=== PATIENT | female | born 1940 | race Caucasian/White ===

== ENCOUNTER 2018-01-07 11:15 | Emergency (ER) | payer MEDICARE, OTHER ==
[~2018-01-07] VITALS: Ht 170.2 cm; Wt 113.4 kg
[~2018-01-07 11:15] MED LIST: ARICEPT5 MG PO; ASPIRIN81 MG PO; ATORVASTATIN CA20 MG PO; ECPIRIN325 MG PO; HYDROCHLOROTHIA25 MG PO; HYZAAR 50-12.51 EACH; LEVOTHROID125 MCG PO; NEXIUM40 MG PO; PANTOPRAZOLE SO40 MG PO; PINDOLOL5 MG PO; PLAVIX75 MG PO; SERTRALINE HCL100 MG PO; VITAMIN B-121000 MCG PO; VITAMIN D1000 UNI1 PO
[2018-01-07 12:19] LABS: BILIRUBIN,URINE 2+ (NEGATIVE); KETONES,URINE NEGATIVE (NEGATIVE); LEUKOCYTE ESTERASE ,URINE TRACE (NEGATIVE); NITRITE,URINE NEGATIVE (NEGATIVE); URINE UROBILINOGEN 12 mg/dL (0.2 - 1)
[2018-01-07 12:22] LABS: CLARITY,URINE HAZY (CLEAR); COLOR,URINE AMBER (YELLOW); PROTEIN,URINE DIPSTICK 1+ (NEGATIVE)
[2018-01-07 12:25] LABS: BASOPHILS % 0.8 % (0.0-1.0); EOSINOPHILS # (AUTO) 0.1 (0.0-0.4); EOSINOPHILS % 2.5 % (0.0-6.0); HEMATOCRIT 35.7 % (34.2-44.1); HEMOGLOBIN 11.7 g/dL (12.0-16.0); LYMPHOCYTES # (AUTO) 0.7 (1.0-3.2); LYMPHOCYTES % 20.7 % (18.0-39.1); MEAN CORPUSCULAR HEMOGLOBIN 33.3 pg (28-32); MEAN CORPUSCULAR HGB CONC 32.8 g/dL (31-35); MEAN CORPUSCULAR VOLUME 101.7 fL (81-99); MONOCYTES # (AUTO) 0.7 (0.2-0.8); MONOCYTES % 18.5 % (4.4-11.3); NEUTROPHILS % 57.2 % (38.7-80.0); PLATELET COUNT 170 x10e3/uL (140-360); RED BLOOD COUNT 3.51 x10e6/uL (3.6-5.1); RED CELL DISTRIBUTION WIDTH 13.8 % (11.7-14.4)
[2018-01-07 12:40] LABS: ALANINE AMINOTRANSFERASE 11 IU/L (0-55); ALBUMIN 3.8 g/dL (3.5-5.0); ALBUMIN/GLOBULIN RATIO 1.1 (0.8-2.0); ALKALINE PHOSPHATASE 103 IU/L (40-150); ANION GAP 13.8 mmol/L (8-16); BLOOD UREA NITROGEN 10 mg/dL (7-26); BUN/CREATININE RATIO 12 (6-25); CALCIUM 9.1 mg/dL (8.4-10.2); CARBON DIOXIDE 24 mmol/L (22-29); CHLORIDE 107 mmol/L (98-107); CREATINE KINASE 29 IU/L (29-168); CREATININE, SERUM 0.85 mg/dL (0.57-1.11); EST GLOMERULAR FILTRATION RATE > 60 ML/MIN (60-); GLUCOSE 97 mg/dL (74-118); POTASSIUM 3.8 mmol/L (3.5-5.1); SODIUM 141 mmol/L (136-145)
[2018-01-07 12:46] LABS: BACTERIA,URINE FEW /HPF; EPITHELIAL CELLS,URINE MODERATE /LPF; MUCUS,URINE MANY (RARE)
--- NOTE | 2018-01-07 12:46 | Diagnostic Imaging Report ---
EXAMINATION: CHEST 2 VIEWS 01/07/2018 11:29 AM COMPARISON: 10/29/2012 INDICATION: Bodyaches, fever, congestion, shortness of breath DISCUSSION: LINES: None. LUNGS: Linear opacities in the left midlung likely represent atelectasis or scarring. Stable calcified granuloma in the right middle lobe. Basilar bronchial wall thickening. PLEURA: No pleural effusion or pneumothorax. HEART AND MEDIASTINUM: Normal heart size. Atherosclerosis of the thoracic aorta. BONES AND SOFT TISSUES: No acute osseous lesion. The soft tissues are normal. IMPRESSION: Bronchial wall thickening suggests bronchitis or asthma. Ronak Velásquez MD Signed by: Dr. Ronak Velásquez M.D. on 01/07/2018 12:43 PM
[2018-01-07 12:50] LABS: INR 1.79; PROTHROMBIN TIME 19.5 seconds (11.9-14.5)
[2018-01-07 12:51] LABS: PARTIAL THROMBOPLASTIN TIME 40.2 seconds (23.8-35.5)
== END 2018-01-07 16:07 | disposition home or self-care (01) ==
LOC: ER 11:15
DX: R50.9 Fever, unspecified (principal); R05 Cough; J00 Acute nasopharyngitis [common cold]; J02.9 Acute pharyngitis, unspecified; N39.0 Urinary tract infection, site not specified
CPT/HCPCS: 36415; 71046; 80053; 81001; 82550; 82553; 83880; 84484; 85025; 85610; 85730; 87086; 87400; 93005; 99284

== ENCOUNTER → 2018-02-05 | Day surgery (SDC) | payer MEDICARE, OTHER ==
[2018-01-30 14:01] LABS: BASOPHILS % 0.9 % (0.0-1.0); EOSINOPHILS % 0.9 % (0.0-6.0); HEMATOCRIT 33.5 % (34.2-44.1); HEMOGLOBIN 10.6 g/dL (12.0-16.0); LYMPHOCYTES # (AUTO) 0.7 (1.0-3.2); LYMPHOCYTES % 19.8 % (18.0-39.1); MEAN CORPUSCULAR HEMOGLOBIN 32.5 pg (28-32); MEAN CORPUSCULAR HGB CONC 31.6 g/dL (31-35); MEAN CORPUSCULAR VOLUME 102.8 fL (81-99); MONOCYTES # (AUTO) 0.3 (0.2-0.8); MONOCYTES % 9.7 % (4.4-11.3); NEUTROPHILS # (AUTO) 2.3 (2.1-6.9); NEUTROPHILS % 68.4 % (38.7-80.0); PLATELET COUNT 206 x10e3/uL (140-360); RED BLOOD COUNT 3.26 x10e6/uL (3.6-5.1); RED CELL DISTRIBUTION WIDTH 13.1 % (11.7-14.4)
[~2018-02-05] MED LIST changes: +ELIQUIS PO; +FENTANYL CITRATE/PF 100MCG/2 ML INJ ONE; +HYOSCYAMINE SULFATE 0.5 MG/ML AMP ONE; +MIDAZOLAM HCL 2 MG/2 ML VIAL ONE; +NAMENDA10 MG PO; +PROPOFOL IV EMULSION 10 MG/ML 50 ML VIAL ONE; +TRAZODONE HCL50 MG PO
--- OUTSIDE RECORDS SUMMARY | 2018-02-05 08:49 | XMS REPORT | Continuity of Care Document ---
Author Author [facility] Organization [facility] Address [address] [address] Phone Unavailable Care Team Providers Care Class A Regional Truck Driver Name Role Phone SIRENA CONNORS MD PCP Insurance Providers Guarantor MaciMickey Address [address] [place] [address] Email PTDECLINED Payer Medicare A & B Policy Number [id number] Subscriber's Name Mickey Lux Relationship 18 Self / Same As Patient Group Name RETIRED Effective Date 06 Payer Miscellaneous Indemnity Policy Number [id number] Subscriber's Name Mickey Lux Relationship 18 Self / Same As Patient Group Number PLAN F Group Name RETIRED Effective Date 06 Advance Directives Directive Response Recorded Date/Time Does the patient have an advance directive? No 03/04/11 3:15pm If yes, is advance directive on file with [facility]? No 03/04/11 3:15pm If not on file with [facility] will patient provide a copy? No 03/04/11 3:15pm Do you have a Directive to Physician? No 01/07/18 3:08pm Do you have a Medical Power of Transportation Services Representative? No 01/07/18 3:08pm Do you have an out of hospital Do Not Resuscitate Order? No 01/07/18 3:08pm Do you have any special needs we should be aware of? No 01/07/18 3:08pm Do you have a support person here with you today? Yes 01/07/18 3:08pm Did patient receive Notice of Privacy Practices? Yes 01/07/18 3:08pm Did patient receive patient rights and responsibilities? Yes 01/07/18 3:08pm Problems No problem information available. Medications Current Home Medications Medication Dose Units Route Directions Days Qty Instructions Start Date Aspirin 81 Mg Tab.chew 81 Mg Oral Daily Atorvastatin Calcium 20 Mg Tablet 20 Mg Oral Today At 9:00PM Cholecalciferol (Vitamin D3) (Vitamin D) 1,000 Unit Tablet 5,000 Unit Oral Daily 30 Tab Clopidogrel Bisulfate (Plavix) 75 Mg Tablet 75 Mg Oral Daily Cyanocobalamin (Vitamin B-12) 1,000 Mcg Tab 3,000 Mcg Oral Daily 30 Tab Donepezil Hcl (Aricept) 5 Mg Tablet 10 Mg Oral Bedtime 60 Tab Hydrochlorothiazide 25 Mg Tablet 12.5 Mg Oral Daily 30 Tab Levothyroxine Sodium (Levothroid) 125 Mcg Tablet 125 Mcg Oral Daily Pantoprazole Sodium (Protonix) 40 Mg Tablet.dr 40 Mg Oral Daily Pindolol 5 Mg Tablet 5 Mg Oral Daily Sertraline Hcl 100 Mg Tablet 100 Mg Oral Daily Past Home Medications Medication Directions Ordered Status Esomeprazole Magnesium (Nexium) 40 Mg Capsule.dr, 40 Mg Oral Daily Discontinued Losartan/Hydrochlorothiazide (Hyzaar 50-12.5 Tablet) 1 Each Tablet, Discontinued Social History Social History Problem Response Recorded Date/Time Onset Date Status Hx Psychiatric Problems Yes 03/04/2011 3:15pm Not Applicable Not Applicable Hx Depression Yes 03/04/2011 3:15pm Not Applicable Not Applicable Smoking Status Start Date Stop Date Never Smoker Hospital Discharge Instructions No hospital discharge instruction information available. Plan of Care Discharge Date 01/07/18 4:07pm Disposition HOME, SELF-CARE Condition at Discharge Stable Instructions/Education Provided Bronchitis (Acute) - Adult Urinary Tract Infection - Women Prescriptions See Medication Section Referrals SIRENA CONNORS MD Order Date: Call for an appointment Address: [address] [place] [id number] Additional Instructions/Education DC Instructions: Call for follow up appointment to see your medical provider or the referral listed. Take the medication as prescribed. As discussed at the bedside, drink fluids, rest and return to the ER for any fever, shortness of breath, chest pain, trouble handling your oral secreations or any new concerns. Functional Status No functional status information available. Allergies, Adverse Reactions, Alerts Allergen Type Severity Reaction Status Last Updated Penicillin Allergy Mild RASH Active 01/07/18 Immunizations No immunization information available. Vital Signs Acute Vital Signs Vital Response Date/Time Height 5 ft 7 in 01/07/2018 11:18am Weight 250 lb 01/07/2018 11:18am Body Mass Index 39.2 kg/m^2 01/07/2018 11:18am Results Laboratory Results Test Name Result Units Flags Reference Collection Date/Time Result Date/ Time Comments White Blood Count 3.57 x10e3/uL L 4.8-10.8 01/07/2018 11:55am 2017 12:29pm Red Blood Count 3.51 x10e6/uL L 3.6-5.1 01/07/2018 11:55am 01/07/2018 12 :29pm Hemoglobin 11.7 g/dL L 12.0-16.0 01/07/2018 11:55am 01/07/2018 12:29pm Hematocrit 35.7 % 34.2-44.1 01/07/2018 11:55am 01/07/2018 12:29pm Mean Corpuscular Volume 101.7 fL H 81-99 01/07/2018 11:55am 01/07/2018 12:29pm Mean Corpuscular Hemoglobin 33.3 pg H 28-32 01/07/2018 11:55am 2017 12:29pm Mean Corpuscular Hemoglobin Concent 32.8 g/dL 31-35 01/07/2018 11:55am 01/07/2018 12:29pm Red Cell Distribution Width 13.8 % 11.7-14.4 01/07/2018 11:55am 2017 12:29pm Platelet Count 170 x10e3/uL 140-360 01/07/2018 11:55am 01/07/2018 12: 29pm Neutrophils (%) (Auto) 57.2 % 38.7-80.0 01/07/2018 11:55am 01/07/2018 12:29pm Lymphocytes (%) (Auto) 20.7 % 18.0-39.1 01/07/2018 11:55am 01/07/2018 12:29pm Monocytes (%) (Auto) 18.5 % H 4.4-11.3 01/07/2018 11:55am 01/07/2018 12 :29pm Eosinophils (%) (Auto) 2.5 % 0.0-6.0 01/07/2018 11:55am 01/07/2018 12: 29pm Basophils (%) (Auto) 0.8 % 0.0-1.0 01/07/2018 11:55am 01/07/2018 12: 29pm IM GRANULOCYTES % 0.3 % 0.0-1.0 01/07/2018 11:55am 01/07/2018 12:29pm Neutrophils # (Auto) 2.0 L 2.1-6.9 01/07/2018 11:55am 01/07/2018 12: 29pm Lymphocytes # (Auto) 0.7 L 1.0-3.2 01/07/2018 11:55am 01/07/2018 12: 29pm Monocytes # (Auto) 0.7 0.2-0.8 01/07/2018 11:55am 01/07/2018 12:29pm Eosinophils # (Auto) 0.1 0.0-0.4 01/07/2018 11:55am 01/07/2018 12: 29pm Basophils # (Auto) 0.0 0.0-0.1 01/07/2018 11:55am 01/07/2018 12:29pm Absolute Immature Granulocyte (auto 0.01 x10e3/uL 0-0.1 01/07/2018 11: 55am 01/07/2018 12:29pm Prothrombin Time 19.5 seconds H 11.9-14.5 01/07/2018 11:55am 01/07/2018 1:20pm Prothromb Time International Ratio 1.79 01/07/2018 11:55am 2017 1:20pm Oral Anticoagulant Therapy INR Values: 1. Low Intensity Therapy 1.5 - 2.0 2. Moderate Intensity Therapy 2.0 - 3.0 3. High Intensity Therapy(1) 2.5 - 3.5 4. High Intensity Therapy(2) 3.0 - 4.0 5. Panic Value INR > 5.0 Activated Partial Thromboplast Time 40.2 seconds H 23.8-35.5 01/07/2018 11:55am 01/07/2018 1:20pm Urine Color ALBERTO H YELLOW 01/07/2018 11:32am 01/07/2018 12:22pm Urine Clarity HAZY CLEAR 01/07/2018 11:32am 01/07/2018 12:22pm Urine Specific [place] 1.015 1.010-1.025 01/07/2018 11:32am 2017 12:22pm Urine pH 6 5 - 7 01/07/2018 11:32am 01/07/2018 12:22pm Urine Leukocyte Esterase TRACE H NEGATIVE 01/07/2018 11:32am 2017 12:22pm Urine Nitrite NEGATIVE NEGATIVE 01/07/2018 11:32am 01/07/2018 12: 22pm Urine Protein 1+ H NEGATIVE 01/07/2018 11:32am 01/07/2018 12:22pm Urine Glucose (UA) NEGATIVE NEGATIVE 01/07/2018 11:32am 01/07/2018 12 :22pm Urine Ketones NEGATIVE NEGATIVE 01/07/2018 11:32am 01/07/2018 12: 22pm Urine Urobilinogen 12 mg/dL H 0.2 - 1 01/07/2018 11:32am 01/07/2018 12: 22pm Urine Bilirubin 2+ H NEGATIVE 01/07/2018 11:32am 01/07/2018 12:22pm Urine Blood 1+ H NEGATIVE 01/07/2018 11:32am 01/07/2018 12:22pm Urine WBC 6-10 /HPF H 0-5 01/07/2018 11:32am 01/07/2018 12:47pm Urine RBC 11-20 /HPF H 0-5 01/07/2018 11:32am 01/07/2018 12:47pm Urine Bacteria FEW /HPF NONE 01/07/2018 11:32am 01/07/2018 12:47pm Urine Epithelial Cells MODERATE /LPF NONE 01/07/2018 11:32am 2017 12:47pm Urine Mucus MANY H RARE 01/07/2018 11:32am 01/07/2018 12:47pm Sodium Level 141 mmol/L 136-145 01/07/2018 11:5501/07/2018 1:20pm Potassium Level 3.8 mmol/L 3.5-5.1 01/07/2018 11:5501/07/2018 1: 20pm Chloride Level 107 mmol/L 98-107 01/07/2018 11:5501/07/2018 1:20pm Influenza Virus Types A,B Antigen NEGATIVE NEGATIVE 01/07/2018 11: 3001/07/2018 12:22pm Carbon Dioxide Level 24 mmol/L -01/07/2018 11:5501/07/2018 1: 20pm Anion Gap 13.8 mmol/L 8-16 01/07/2018 11:5501/07/2018 1:20pm Blood Urea Nitrogen 10 mg/dL 06-0701/07/2018 11:5501/07/2018 1:20pm Creatinine 0.85 mg/dL 0.57-1.11 01/07/2018 11:5501/07/2018 1:20pm BUN/Creatinine Ratio 12 05-0701/07/2018 11:5501/07/2018 1:20pm Estimat Glomerular Filtration Rate > 60 ML/MIN 60- 01/07/2018 11:5501/07/2018 1:20pm Ranges were taken from the National Kidney Disease Education Program and the National Kidney Foundation literature. Reference ranges: 60 or greater: Normal 16-59 (for 3 consecutive months): Chronic kidney disease 15 or less: Kidney failure Glucose Level 97 mg/dL 74-118 01/07/2018 11:5501/07/2018 1:20pm Calcium Level 9.1 mg/dL 8.4-10.2 01/07/2018 11:5501/07/2018 1:20pm Total Bilirubin 1.3 mg/dL H 0.2-1.2 01/07/2018 11:5501/07/2018 1: 20pm Aspartate Amino Transf (AST/SGOT) 18 IU/L 5-34 01/07/2018 11:5501/07 1:20pm Alanine Aminotransferase (ALT/SGPT) 11 IU/L 0-55 01/07/2018 11:55 1:20pm Total Protein 7.2 g/dL 6.5-8.1 01/07/2018 11:55am 01/07/2018 1:20pm Albumin 3.8 g/dL 3.5-5.0 01/07/2018 11:55am 01/07/2018 1:20pm Globulin 3.4 g/dL 2.3-3.5 01/07/2018 11:55am 01/07/2018 1:20pm Albumin/Globulin Ratio 1.1 0.8-2.0 01/07/2018 11:55am 01/07/2018 1: 20pm Alkaline Phosphatase 103 IU/L 40-150 01/07/2018 11:55am 01/07/2018 1: 20pm B-Type Natriuretic Peptide 330.3 pg/mL H 0-100 01/07/2018 11:55am 2017 1:21pm Creatine Kinase 29 IU/L 29-168 01/07/2018 11:55am 01/07/2018 1:20pm Creatine Kinase MB 0.50 ng/mL 0-5.0 01/07/2018 11:55am 01/07/2018 1: 20pm Troponin I 0.004 ng/mL 0-0.300 01/07/2018 11:55am 01/07/2018 1:20pm Procedures Procedure Status Date Provider(s) X-ray of chest, two views Active 01/07/18 CLARIBEL BANKS DYNAMICIST Encounters Encounter Location Arrival/Admit Date Discharge/Depart Date Attending Provider Departed Emergency Room [facility] 01/07/18 11:15am 01/07 4:07pm SOUTH FRAZIER MD
--- OUTSIDE RECORDS SUMMARY | 2018-02-05 08:49 | XMS REPORT | Clinical Summary ---
Author Author [facility] Address Unknown Phone Unavailable Care Team Providers Care Gunnery/Ordnance Officer Name Role Phone Rajni Garcia MD PCP Allergies Active Allergy Reactions Severity Noted Date Comments Penicillins Rash Low 07/25/2016 Current Medications Prescription Sig. Disp. Refills Start End Date Status Date atorvastatin (LIPITOR) 40 20 mg. Active MG tablet pindolol (VISKEN) 5 MG pindolol 5 mg tablet Active tablet sertraline (ZOLOFT) 100 sertraline 100 mg tablet Active MG tablet levothyroxine (SYNTHROID, levothyroxine 150 mcg Active LEVOTHROID) 150 MCG tablet tablet donepezil (ARICEPT) 10 MG donepezil 10 mg tablet Active tablet pantoprazole (PROTONIX) Take 40 mg by mouth Active 40 MG EC tablet daily. vitamin D3-folic acid Take by mouth. Active 5,000 unit- 1 mg tablet cyanocobalamin (VITAMIN Take 2,000 mcg by mouth Active B-12) 2000 MCG tablet daily. diazepam (VALIUM) 5 MG Take 5 mg by mouth every Active tablet 6 (six) hours as needed for anxiety. levothyroxine (SYNTHROID, Take 100 mcg by mouth Active LEVOXYL) 100 mcg tablet daily. HYDROcodone-acetaminophen Take 1 tablet by mouth Active (NORCO) 10-325 mg per every 6 (six) hours as tablet needed for moderate pain. clopidogrel (PLAVIX) 75 clopidogrel 75 mg tablet 10/23/20 Discontin mg tablet 17 ued losartan-hydrochlorothiaz losartan 50 10/23/20 Discontin javid (HYZAAR) 50-12.5 mg mg-hydrochlorothiazide 17 ued per tablet 12.5 mg tablet aspirin (ECOTRIN) 81 MG Take 81 mg by mouth 10/23/20 Discontin enteric coated tablet daily. 17 ued levothyroxine (SYNTHROID, TK 1 T PO QD 5 10/20/20 10/23/20 Discontin LEVOXYL) 125 mcg tablet 16 17 ued ibandronate (BONIVA) 150 Take 1 tablet (150 mg 1 tablet 11 12/30/19 02/07/20 Discontin mg tablet total) by mouth every 30 17 17 ued (thirty) days. Take in AM with glass of water prior to food, don't lie down for 30 minutes. levothyroxine (SYNTHROID, TK 1 T PO QD 1 01/19/20 10/23/20 Discontin LEVOXYL) 137 mcg tablet 17 17 ued HYDROcodone-acetaminophen Take 1 tablet by mouth 60 tablet 0 03/08/20 04/07/20 (NORCO) 5-325 mg per every 8 (eight) hours as 17 17 tablet needed for moderate pain for up to 60 doses. Max Daily Amount: 3 tablets traMADol (ULTRAM) 50 mg Take 1 tablet (50 mg 90 tablet 0 07/21/20 tablet total) by mouth every 8 17 17 (eight) hours as needed for moderate pain for up to 28 days. Active Problems Problem Noted Date Status post total right knee replacement 11/09/2016 Arthritis of right knee 07/25/2016 Encounters Date Type Specialty Care Team Description 01/05/2018 Hospital Radiology Valentino Pierce MD Left shoulder pain, Encounter unspecified chronicity 01/05/2018 Transcribe Access Valentino Pierce MD Left shoulder pain, Orders unspecified chronicity (Primary Dx) 10/23/2017 Hospital Procedural Cardiology Flo Abad MD Carotid artery disorder Encounter 10/23/2017 Procedure Pass Procedural Cardiology 10/23/2017 Surgery Procedural Cardiology Flo Abad MD Cv left heart cath w lv gram cors [75891 (CPT )] 07/20/2017 Refill Orthopedic Surgery Manuel Wallace MD 07/15/2017 Refill Orthopedic Surgery Manuel Wallace MD 03/08/2017 Orders Only Orthopedic Surgery Manuel Wallace MD 03/07/2017 Refill Orthopedic Surgery Manuel Wallace MD 03/02/2017 Telephone Orthopedic Surgery Manuel Wallace MD 02/15/2017 [facility] Emergency Medicine Physician, Emergency, MD Encounter Regino Peralta DO 02/06/2017 Office Visit Orthopedic Surgery Manuel Wallace MD Status post total right knee replacement (Primary Dx) after 02/04/2017 Family History Medical History Relation Name Comments Heart failure Father Colon cancer Mother Relation Name Status Comments Father Mother Social History Tobacco Use Types Packs/Day Years Used Date Never Smoker Smokeless Tobacco: Never Used Alcohol Use Drinks/Week oz/Week Comments No Sex Assigned at Date Recorded Not on file Last Filed Vital Signs Vital Sign Reading Time Taken Blood Pressure 130/60 10/23/2017 4:02 PM CENTRAL OFFICE REPAIRER Pulse 72 10/23/2017 4:02 PM CENTRAL OFFICE REPAIRER Temperature - - Respiratory Rate 17 10/23/2017 4:02 PM CENTRAL OFFICE REPAIRER Oxygen Saturation 99% 10/23/2017 4:02 PM CENTRAL OFFICE REPAIRER Inhaled Oxygen - - Concentration Weight 88.9 kg (196 lb) 10/23/2017 9:08 AM CENTRAL OFFICE REPAIRER Height 162.6 cm (5' 4") 10/23/2017 9:08 AM CENTRAL OFFICE REPAIRER Body Mass Index 33.64 10/23/2017 9:08 AM CENTRAL OFFICE REPAIRER Plan of Treatment Health Maintenance Due Date Last Done Comments ZOSTER VACCINE 2001 PNEUMOCOCCAL 2006 POLYSACCHARIDE VACCINE AGE 65 AND OVER PNEUMOCOCCAL-13 2006 INFLUENZA VACCINE 06/13/2017 Implants Implanted Type Area Motion Picture Critic Device Expiration Model / Identifier Date Serial / Lot Device Vasclr Clsr Baln Cath 10ml Cardiovasc N/A: N/A ACCESS CLOSURE 09/12/2019 [id number] / Lkng Syr 5fr [employer] / [id number] Implants [id number] Implanted: 10/23/2017 (Quantity not on file) Procedures Procedure Name Priority Date/Time Associated Diagnosis Comments CV LEFT HEART CATH LV Routine 10/23/2017 Carotid artery disorder GRAM WITH CORS 12:09 PM CENTRAL OFFICE REPAIRER after 02/04/2017 Results * XR Shoulder 2+ Vw Left (01/05/2018 12:54 PM) Specimen Performing Laboratory [facility] [address] [place] [address] Narrative Clinical history: COMPARISON: None. TECHNIQUE: 3 views of the shoulder IMPRESSION: The glenohumeral joint: There is advanced degenerative narrowing of the glenohumeral joint with mild inferior subluxation of the humerus. A 12mm osteophyte is present on the inferior rim of the glenoid fossa. Acromioclavicular arthropathy: There is a 12 mm focal area of soft tissue calcification on the superior aspect of the acromioclavicular joint. There is cortical overgrowth with a large flat surface osteophyte on the inferior surface of the acromion with [id number] apposition of the acromial osteophyte and the humeral articular surface. A calcified loose body is suspected along the inferior margin of the acromioclavicular joint. The appearance is similar to prior left shoulder x-ray from 01/21/2017. No signs of acute trauma. [id number] Procedure Note Interface, Radiology Results Incoming - 01/05/2018 2:24 PM CENTRAL OFFICE REPAIRER Clinical history: COMPARISON: None. TECHNIQUE: 3 views of the shoulder IMPRESSION: The glenohumeral joint: There is advanced degenerative narrowing of the glenohumeral joint with mild inferior subluxation of the humerus. A 12mm osteophyte is present on the inferior rim of the glenoid fossa. Acromioclavicular arthropathy: There is a 12 mm focal area of soft tissue calcification on the superior aspect of the acromioclavicular joint. There is cortical overgrowth with a large flat surface osteophyte on the inferior surface of the acromion with [id number] apposition of the acromial osteophyte and the humeral articular surface. A calcified loose body is suspected along the inferior margin of the acromioclavicular joint. The appearance is similar to prior left shoulder x-ray from 01/21/2017. No signs of acute trauma. [id number] * Cv fence laborer procedure (10/23/2017 12:09 PM) Specimen Performing Laboratory [facility] [address] [place] [address] * POC panel (10/23/2017 9:23 AM) Component Value Ref Range POC sodium 144 135 - 150 mmol/L POC potassium 3.7 3.5 - 5.0 mmol/L POC chloride 102 100 - 109 mmol/L POC CO2 28 24 - 32 mmol/L POC glucose 87 65 - 100 mg/dL POC BUN 11 7 - 18 mg/dL POC creatinine 0.7 (L) 0.8 - 1.5 mg/dl POC hemoglobin 11.2 (L) 11.5 - 15.3 g/dL POC hematocrit 33 (L) 34 - 45 % Specimen Performing Laboratory Blood [facility] [address] [place] [address] * XR Forearm 2 Vw Right (02/15/2017 7:05 PM) Specimen Performing Laboratory [facility] [address] [place] [address] Narrative FOREARM RIGHT CLINICAL INDICATION:PAIN COMPARISON:None. IMPRESSION: There is no acute fracture or dislocation. There is no elbow joint effusion. There are mild degenerative changes at the ulnotrochlear articulation. There is enthesopathy at the lateral humeral epicondyle. The bones are demineralized. [id number] Procedure Note Interface, Radiology Conversion - 02/15/2017 7:28 PM CDT FOREARM RIGHT CLINICAL INDICATION: PAIN COMPARISON: None. IMPRESSION: There is no acute fracture or dislocation. There is no elbow joint effusion. There are mild degenerative changes at the ulnotrochlear articulation. There is enthesopathy at the lateral humeral epicondyle. The bones are demineralized. [id number] * XR Hand 3+ Vw Right (02/15/2017 7:03 PM) Specimen Performing Laboratory [facility] [address] [place] [address] Narrative HAND 3 VIEWS RIGHT CLINICAL INDICATION:PAIN COMPARISON:None. IMPRESSION: There is no acute fracture or dislocation. There is no focal soft tissue swelling. 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 The bones are demineralized. There is chondrocalcinosis within the triangular fibrocartilage complex. [id number] Procedure Note Interface, Radiology Conversion - 02/15/2017 7:26 PM CDT HAND 3 VIEWS RIGHT CLINICAL INDICATION: PAIN COMPARISON: None. IMPRESSION: There is no acute fracture or dislocation. There is no focal soft tissue swelling. 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 The bones are demineralized. There is chondrocalcinosis within the triangular fibrocartilage complex. [facility]-[id number] after 02/04/2017 Insurance Payer Benefit Subscriber ID Type Phone Address Plan / Group MEDICARE MEDICARE xxxxxxxxxxx Medicare [place], [place] PART A AND B [employer] OF [employer] MUT[employer] OF xxxxxxxx Commercial [employer] Home:
--- OUTSIDE RECORDS SUMMARY | 2018-02-05 08:49 | XMS REPORT ---
Author Author [facility] Address Unknown Phone Unavailable Care Team Providers Care Levers Lace Machine Operator Name Role Phone SOUTH FRAZIER Unavailable Unavailable Problems This patient has no known problems. Allergies, Adverse Reactions, Alerts This patient has no known allergies or adverse reactions. Medications This patient has no known medications. Results Test Description Test Time Test Comments Text Results Atomic Results Result Comments CHEST 2 VIEWS [place] [address] Patient Name: MICKEY RODRIGUEZ MR #: [id number] : 1940 Age/Sex: 77/F Req #: [id number] Adm Physician: Ordered by: CLARIBEL BANKS COATING MACHINE OPERATOR HELPER Report #: [id number] Location: ER Room/Bed: Procedure: [id number] DX/CHEST 2 VIEWS Exam Date: 01/07/18 Exam Time: 1213 REPORT STATUS: Signed EXAMINATION: CHEST 2 VIEWS 01/07/2018 11: 29 AM COMPARISON: 10/29/2012 INDICATION: Bodyaches, fever, congestion , shortness of breath DISCUSSION: LINES: None. LUNGS: Linear opacities in the left midlung likely represent atelectasis or scarring. Stable calcified granuloma in the right middle lobe. Basilar bronchial wall thickening. PLEURA: No pleural effusion or pneumothorax. HEART AND MEDIASTINUM: Normal heart size. Atherosclerosis of the thoracic aorta. BONES AND SOFT TISSUES: No acute osseous lesion. The soft tissues are normal. IMPRESSION: Bronchial wall thickening suggests bronchitis or asthma. Edson Velásquez MD Signed by: Dr. Edson Velásquez M.D. on 12:43 PM Dictated By: EDSON VELÁSQUEZ MD 1243 Transcribed By: NIKKI on 01/07/18 1243 COPY TO: CLARIBEL BANKS NP
--- NOTE | 2018-02-05 13:10 | Operative Report ---
DATE OF PROCEDURE: February 05, 2018 REFERRING PHYSICIAN: Dr. Ani Connors PROCEDURES PERFORMED 1. Esophagogastroduodenoscopy with esophageal dilatation and biopsies. 2. Colonoscopy with biopsies. INDICATIONS FOR EGD: Dysphagia, history of dark stools. INDICATIONS FOR COLONOSCOPY: Colorectal cancer screening, personal history of colon polyps, chronic diarrhea. MEDICATION: Patient was done under MAC. Please see anesthesiologist's note. PROCEDURE: With the patient in the left lateral decubitus position, the flexible fiberoptic Olympus gastroscope was introduced into the esophagus under direct visualization without any difficulty. There was some patchy erythema noted in the distal esophagus. There was a mild stricture noted at the GE junction, and that was dilated to size 52-Armenian Jo. There was a focal nodularity noted at the GE junction, and that was biopsied. The scope was then advanced with ease into the stomach, traversing a small sliding hiatal hernia. Mucosa overlying the antrum and the body revealed some patchy erythema and mild to moderate edema, and biopsies were obtained and sent to stain for H. pylori. There was some patchy atrophy noted in the body, and biopsies were obtained and sent to rule out atrophic gastritis. Two minute nodules were noted in the mid body greater curvature, and those were biopsied. The pylorus appeared to be of normal contour and shape. It was intubated with ease, and the scope was advanced all the way to the 2nd portion of the duodenum. Mucosa overlying the proximal 2nd portion and the duodenal bulb appeared to be within normal limits. The scope was then withdrawn back into the stomach and retroflexed. Mucosa overlying the fundus and the cardia appeared to be within normal limits. The scope was then straightened out. The stomach was decompressed. The scope was subsequently withdrawn. Patient tolerated the procedure well. IMPRESSION 1. Distal esophagitis. 2. Focal nodularity at gastroesophageal junction, biopsied. 3. Esophageal stricture at gastroesophageal junction dilated to a size 52-Armenian Jo. 4. Small sliding hiatal hernia. 5. Gastritis, biopsied. Biopsies sent to stain for H. pylori. 6. Minute nodules, body, biopsied. PLAN: Follow up histology. Increase Protonix to 40 mg 1 p.o. a.c. b.i.d. The patient was then turned around. After adequate lubrication of the anal canal, a flexible fiberoptic Olympus colonoscope was inserted into the rectum with ease and advanced all the way to the cecum. The ileocecal valve was intubated. Scope was advanced to just beyond the ileocecal valve. It could not be advanced any further due to the excessive looping of the scope proximally. Biopsies were obtained. The scope was then withdrawn back into the colon. It was then withdrawn slowly. Mucosa overlying the ascending and transverse grossly appeared to be within normal limits. Mucosa overlying the left colon revealed some patchy, mild, inflammatory changes, and random biopsies were obtained. The scope was then retroflexed into the distal rectum, and the area around the dentate line appeared to be within normal limits. The scope was then straightened out. It was subsequently withdrawn after securing an adequate stool specimen that was sent for the appropriate stool studies. Patient tolerated the procedure well. IMPRESSION: Mild, patchy, left-sided colitis. Random biopsies obtained. PLAN: Follow up histology. Follow up stool studies. Initiate Bentyl 10 mg 1 p.o. t.i.d. Add VSL #3 DS 1 p.o. b.i.d. Job#: [id number] cc:ANI CONNORS MD
[2018-02-05 13:56] LABS: WBC,FECAL (FECAL LACTOFERRIN) NEGATIVE (NEGATIVE)
[2018-02-06 12:59] LABS: C DIFFICILE TOXIN A&B AMP PROB NEGATIVE (NEGATIVE)
== END | disposition home or self-care (01) ==
LOC: ENDO 08:47
PROVIDERS: ATTEND Internal Medicine Gastroenterology
DX: K29.40 Chronic atrophic gastritis without bleeding (principal); Z86.010 Personal history of colon polyps; K22.2 Esophageal obstruction; K51.50 Left sided colitis without complications; K31.89 Other diseases of stomach and duodenum; K21.0 Gastro-esophageal reflux disease with esophagitis; K22.9 Disease of esophagus, unspecified; K44.9 Diaphragmatic hernia without obstruction or gangrene; K57.30 Diverticulosis of large intestine without perforation or abscess without bleeding; K64.8 Other hemorrhoids; I25.10 Atherosclerotic heart disease of native coronary artery without angina pectoris; I48.91 Unspecified atrial fibrillation; I10 Essential (primary) hypertension; F32.9 Major depressive disorder, single episode, unspecified; F03.90 Unspecified dementia, unspecified severity, without behavioral disturbance, psychotic disturbance, mood disturbance, and anxiety; Z01.810 Encounter for preprocedural cardiovascular examination; Z01.812 Encounter for preprocedural laboratory examination; Z79.02 Long term (current) use of antithrombotics/antiplatelets; Z79.82 Long term (current) use of aspirin; Z68.30 Body mass index [BMI] 30.0-30.9, adult; Z86.73 Personal history of transient ischemic attack (TIA), and cerebral infarction without residual deficits; Z80.0 Family history of malignant neoplasm of digestive organs
CPT/HCPCS: 36415; 43239; 43450; 45380; 83630; 83993; 85025; 87045; 87177; 87328; 87493; 88305; 88312; 93005; J1980; J2250; 45378

== ENCOUNTER 2019-12-23 15:08 | Emergency (ER) | payer MEDICARE, OTHER ==
[~2019-12-23] VITALS: Ht 162.6 cm; Wt 98.9 kg
[~2019-12-23 15:08] MED LIST changes: -FENTANYL CITRATE/PF 100MCG/2 ML INJ ONE; -HYOSCYAMINE SULFATE 0.5 MG/ML AMP ONE; -MIDAZOLAM HCL 2 MG/2 ML VIAL ONE; -PROPOFOL IV EMULSION 10 MG/ML 50 ML VIAL ONE
[2019-12-23 16:52] LABS: EOSINOPHILS % 0.5 % (0.0-6.0); HEMOGLOBIN 13.8 g/dL (12.0-16.0); LYMPHOCYTES # (AUTO) 1.1 (1.0-3.2); LYMPHOCYTES % 28.2 % (18.0-39.1); MEAN CORPUSCULAR HEMOGLOBIN 33.3 pg (28-32); MEAN CORPUSCULAR HGB CONC 32.9 g/dL (31-35); MEAN CORPUSCULAR VOLUME 101.4 fL (81-99); MONOCYTES # (AUTO) 0.5 (0.2-0.8); MONOCYTES % 13.8 % (4.4-11.3); NEUTROPHILS # (AUTO) 2.2 (2.1-6.9); NEUTROPHILS % 56.2 % (38.7-80.0); PLATELET COUNT 231 x10e3/uL (140-360); RED BLOOD COUNT 4.14 x10e6/uL (3.6-5.1)
[2019-12-23 17:05] LABS: ALANINE AMINOTRANSFERASE 8 IU/L (0-55); ALBUMIN 3.6 g/dL (3.5-5.0); ALBUMIN/GLOBULIN RATIO 1.2 (0.8-2.0); ALKALINE PHOSPHATASE 99 IU/L (40-150); ANION GAP 14.2 mmol/L (8-16); BLOOD UREA NITROGEN 7 mg/dL (7-26); BUN/CREATININE RATIO 10 (6-25); CALCIUM 9.1 mg/dL (8.4-10.2); CARBON DIOXIDE 26 mmol/L (22-29); CHLORIDE 103 mmol/L (98-107); CREATININE, SERUM 0.69 mg/dL (0.57-1.11); EST GLOMERULAR FILTRATION RATE > 60 ML/MIN (60-); GLUCOSE 118 mg/dL (74-118); POTASSIUM 3.2 mmol/L (3.5-5.1); SODIUM 140 mmol/L (136-145)
[2019-12-23] MEDS ORDERED: SODIUM CHLORIDE 0.9% 50ML 50 ML ONE (18:36)
[2019-12-23] MEDS ORDERED: IOPAMIDOL 370 MG/ML 200 ML INFUS..BTL INJ ONE (18:37)
--- NOTE | 2019-12-23 19:03 | Diagnostic Imaging Report ---
EXAM: CT Abdomen and Pelvis WITH contrast INDICATION: ^abd pain ^[id number] ^[id number] COMPARISON: CT dated 12/07/2007 TECHNIQUE: Abdomen and pelvis were scanned utilizing a multidetector helical scanner from the lung base to the pubic symphysis after administration of IV contrast. Coronal and sagittal reformations were obtained. Dose modulation, iterative reconstruction, and/or weight based adjustment of the mA/kV was utilized to reduce the radiation dose to as low as reasonably achievable. Routine protocol was performed. Scan was performed when during portal venous phase. IV CONTRAST: 100 mL of Isovue-370 ORAL CONTRAST: None COMPLICATIONS: None RADIATION DOSE: Total DLP: 442.53 mGy*cm Estimated effective dose: (DLP x 0.015 x size factor) mSv CTDIvol has been reviewed. It is below the limits set by the Radiation Protocol Committee (RPC). FINDINGS: LINES and TUBES: Distal leads of cardiac device visualized, terminating in right atrium and right ventricle. LOWER THORAX: Cardiomegaly and moderate left pleural effusion. Bibasilar atelectasis/scarring. HEPATOBILIARY: No hepatic mass. Tiny calcified granuloma in the left hepatic lobe. No biliary ductal dilation. GALLBLADDER: No radio-opaque stones or sludge. No wall thickening. SPLEEN: No splenomegaly. Numerous calcified parenchyma most. PANCREAS: Atrophic. No focal masses or ductal dilatation. ADRENALS: No adrenal nodules KIDNEYS/URETERS: Kidneys enhance symmetrically. No hydronephrosis. No cystic or solid mass lesions. No stones. GI TRACT: No abnormal distention, wall thickening, or evidence of bowel obstruction. Appendix is not visualized. PELVIC ORGANS/BLADDER: Unremarkable. LYMPH NODES: No lymphadenopathy. VESSELS: Unremarkable. PERITONEUM / RETROPERITONEUM: No free air or fluid. BONES: Subacute left inferior pubic ramus nondisplaced fracture with evidence of callus formation. Questionable nondisplaced left posterior 11th rib fracture. Multilevel degenerative changes of the spine. SOFT TISSUES: Numerous bilateral gluteal subcutaneous injection granulomas. Mild anasarca. IMPRESSION: 1. Cardiomegaly and moderate left pleural effusion. 2. Evidence of prior granulomatous disease. 3. Subacute left inferior pubic ramus fracture with evidence of callus formation. There is also questionable nondisplaced fracture of the left posterior 11th rib. Signed by: Dr. Stephen Galloway MD on 12/23/2019 7:01 PM
[2019-12-23 21:16] LABS: CLARITY,URINE SL CLOUDY (CLEAR); COLOR,URINE STRAW (YELLOW)
[2019-12-23 21:17] LABS: BILIRUBIN,URINE 2+ (NEGATIVE); KETONES,URINE NEGATIVE (NEGATIVE); LEUKOCYTE ESTERASE ,URINE NEGATIVE (NEGATIVE); NITRITE,URINE NEGATIVE (NEGATIVE); PROTEIN,URINE DIPSTICK 1+ (NEGATIVE); URINE UROBILINOGEN 2 mg/dL (0.2 - 1)
[2019-12-23 21:28] LABS: BACTERIA,URINE MODERATE /HPF; EPITHELIAL CELLS,URINE RARE /LPF; MUCUS,URINE MODERATE (RARE)
[2019-12-23] MEDS ORDERED: CIPROFLOXACIN 500 MG TAB PO SCH (21:42)
--- NOTE | 2019-12-23 21:45 | NUR ---
REPORT CALLED TO LUIS ALFREDO AGUILAR AT THIS TIME. NURSING ROLLER LEVELER AND CHARGE NURSE NOTIFIED.
[2019-12-23] MEDS ORDERED: APIXABAN 5 MG TABLET PO SCH (23:10)
[2019-12-23] MEDS ORDERED: APIXABAN 5 MG TABLET ONE (23:14)
[2019-12-23] MEDS ORDERED: APIXABAN 5 MG TABLET PO ONE (23:45)
== END 2019-12-23 23:20 ==
LOC: ER 15:08
DX: R45.851 Suicidal ideations (principal); F32.1 Major depressive disorder, single episode, moderate; F03.90 Unspecified dementia, unspecified severity, without behavioral disturbance, psychotic disturbance, mood disturbance, and anxiety; K21.9 Gastro-esophageal reflux disease without esophagitis
CPT/HCPCS: 36415; 74177; 80053; 81001; 85025; 99284; Q9967

== ENCOUNTER → 2020-05-01 | Day surgery (SDC) | payer MEDICARE, OTHER ==
[2020-04-28 15:45] LABS: BASOPHILS % 0.8 % (0.0-1.0); HEMOGLOBIN 11.9 g/dL (12.0-16.0); LYMPHOCYTES # (AUTO) 1.1 (1.0-3.2); LYMPHOCYTES % 27.1 % (18.0-39.1); MEAN CORPUSCULAR HEMOGLOBIN 32.7 pg (28-32); MEAN CORPUSCULAR HGB CONC 32.2 g/dL (31-35); MEAN CORPUSCULAR VOLUME 101.6 fL (81-99); MONOCYTES # (AUTO) 0.5 (0.2-0.8); MONOCYTES % 12.9 % (4.4-11.3); NEUTROPHILS # (AUTO) 2.3 (2.1-6.9); NEUTROPHILS % 58.2 % (38.7-80.0); PLATELET COUNT 223 x10e3/uL (140-360); RED BLOOD COUNT 3.64 x10e6/uL (3.6-5.1); RED CELL DISTRIBUTION WIDTH 13.5 % (11.7-14.4)
[~2020-05-01] MED LIST changes: +ALIGN4 MG PO; +BENTYL10 MG/1 ML PO; +DIGOXIN125 MCG PO; +ETOMIDATE 2 MG/ML 10 ML INJ IV ONE; +FENTANYL CITRATE/PF 100MCG/2 ML INJ ONE; +FUROSEMIDE40 MG PO; +HYOSCYAMINE 0.125 MG TAB ONE; +LEVSIN0.125 MG PO; +LIDOCAINE HCL 2% LOCAL INJ 5 ML SDV VIAL INJ ONE; +POTASSIUM CHLO10 ME1 PO; +PROPOFOL IV EMULSION 10 MG/ML 20 ML VIAL ONE; +SOTALOL80 MG PO
[2020-05-01 16:00] VITALS: BP 121/53
[2020-05-01 16:24] LABS: WBC,FECAL (FECAL LACTOFERRIN) POSITIVE (NEGATIVE)
--- NOTE | 2020-05-01 18:45 | Operative Report ---
DATE OF PROCEDURE: 05/01/2020 SURGEON: Yifan Levine MD PROCEDURES: EGD with polypectomy and biopsies, and colonoscopy with polypectomy and biopsies. INDICATIONS FOR EGD: Early satiety, nausea, weight loss. INDICATIONS FOR COLONOSCOPY: Diarrhea, weight loss. MEDICATIONS: The patient was done under MAC, please see anesthesiologist's note. PROCEDURE IN DETAIL: With the patient in left lateral decubitus position, a flexible fiberoptic Olympus gastroscope was introduced into the esophagus under direct visualization without any difficulty. There was some focal nodularity noted in the GE junction, that was biopsied. The scope was then advanced with ease into the stomach, traversing a small sliding hiatal hernia. Mucosa overlying the antrum and the body revealed some diffuse erythema and mild to moderate edema, and biopsies were obtained, sent to stain for H. pylori. There was a minute polyp noted in the distal body of the stomach along the greater curvature, that was partially excised with the cold biopsy forceps. The pylorus was of normal contour and shape, it was intubated with ease and the scope was advanced all the way to the second portion of the duodenum. Biopsies were obtained from the proximal second portion and duodenal bulb. The scope was then withdrawn back into the stomach and retroflexed, mucosa overlying the fundus and cardia appeared to be within normal limits. The scope was then straightened out, it was subsequently withdrawn. The patient tolerated the procedure well. IMPRESSION: 1. Distal esophagitis, mild. 2. Focal nodularity, GE junction, biopsied. 3. Small sliding hiatal hernia. 4. Gastritis. 5. Gastric polyp, distal body, partially excised with cold biopsy forceps. 6. Rule out sprue. PLAN: 1. Follow up histology. 2. Increase Protonix to 40 mg one p.o. a.c. b.i.d. DESCRIPTION OF PROCEDURE: The patient was then turned around after adequate lubrication of the anal canal, a flexible fiberoptic Olympus colonoscope was inserted into the rectum with ease and advanced all the way to the cecum. Mucosa overlying the cecum appeared to be within normal limits. There were some patchy mild inflammatory changes noted throughout the colon and as well as the rectum and random biopsies were obtained. Some minimal diverticulosis was noted in the left colon. One polyp was hot snared from the sigmoid colon. The scope was then retroflexed into the distal rectum. The area around the dentate line appeared to be within normal limits. The scope was then straightened out, it was subsequently withdrawn after securing an adequate stool specimen, that was sent for the appropriate stool studies. The patient tolerated the procedure well. IMPRESSION: 1. Mild patchy colitis, random biopsies obtained. 2. Sigmoid colon polyp, hot snared. 3. Diverticulosis, minimal. 4. Proctitis, mild. PLAN: 1. Follow up histology. 2. Follow up stool studies. 3. Initiate VSL %3 one p.o. b.i.d. Yifan Levine MD [facility] [place][id number] cc: Ani Morfin MD
[2020-05-02 12:01] LABS: C DIFFICILE TOXIN A&B AMP PROB NEGATIVE (NEGATIVE)
== END | disposition home or self-care (01) ==
LOC: OR 12:20
PROVIDERS: ATTEND Internal Medicine Gastroenterology
DX: K52.9 Noninfective gastroenteritis and colitis, unspecified (principal); D12.5 Benign neoplasm of sigmoid colon; K20.9 Esophagitis, unspecified; K29.70 Gastritis, unspecified, without bleeding; K44.9 Diaphragmatic hernia without obstruction or gangrene; K62.89 Other specified diseases of anus and rectum; K57.30 Diverticulosis of large intestine without perforation or abscess without bleeding; K63.5 Polyp of colon; K92.89 Other specified diseases of the digestive system; K29.50 Unspecified chronic gastritis without bleeding; Z01.810 Encounter for preprocedural cardiovascular examination; Z01.812 Encounter for preprocedural laboratory examination; Z11.59 Encounter for screening for other viral diseases
CPT/HCPCS: 36415; 43239; 45380; 45385; 83630; 83993; 85025; 87045; 87177; 87328; 87493; 87635; 88305; 88312; 93005; J2001; J2704; J3010